=== PATIENT | female | born 1995 | race Two or more races ===

== ENCOUNTER 2018-07-29 23:51 | Emergency (ER) | payer SELFPAY ==
[~2018-07-29] VITALS: Ht 162.6 cm; Wt 99.8 kg
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
[2018-07-30] MEDS ORDERED: ACETAMINOPHEN 325 MG TABLET PO ONE (01:30)
[2018-07-30] MEDS ORDERED: ACETAMINOPHEN 325 MG TABLET ONE (01:36)
[2018-07-30] MEDS ORDERED: CYCLOBENZAPRINE 10 MG TABLET ONE (01:36)
[2018-07-30] MEDS ORDERED: IBUPROFEN 600 MG TABLET PO ONE ×2 (01:37→02:00)
[2018-07-30] MEDS ORDERED: CYCLOBENZAPRINE 10 MG TABLET PO ONE (02:00)
[2018-07-30] MEDS ORDERED: METHOCARBAMOL (750MG) 750 MG TABLET PO SCH (03:30)
[2018-07-30] MEDS ORDERED: METHOCARBAMOL (500MG) 500 MG TABLET ONE (03:33)
[2018-07-30 05:58] VITALS: BP 155/88
== END 2018-07-30 05:58 | disposition home or self-care (01) ==
LOC: ER 23:52
DX: S13.4XXA Sprain of ligaments of cervical spine, initial encounter (principal); R51 Headache; R10.31 Right lower quadrant pain; F17.200 Nicotine dependence, unspecified, uncomplicated; Z88.1 Allergy status to other antibiotic agents; V43.52XA Car driver injured in collision with other type car in traffic accident, initial encounter; Y93.89 Activity, other specified; Y92.413 State road as the place of occurrence of the external cause; Y99.8 Other external cause status
CPT/HCPCS: 70450-TC; 71046; 72100-TC; 72125-TC